=== PATIENT | female | born 1930 | race Caucasian/White ===

== ENCOUNTER → 2016-04-30 | Outpatient (CLI) | payer OTHER ==
[~2016-04-30] MED LIST: ALLEGRA PO; ASPIRIN PO; ATENOLOL PO; CALTRATE PLUS T1 TAB PO; CRESTOR PO; FISH OIL 1,0001 CAP PO; GARLIC; IMODIUM2 MG PO; MUCINEX DM1 TAB.SR . PO; SULAR PO; TRICOR PO; VIT E PO
--- NOTE | ~2016-04-30 | CR151 ---
[facility] A Service of [facility] RADIOLOGY TEXT RESULTS PATIENT: ARIELLE BEST LOCATION: [facility] : 28 UNIT #: [id number] AGE: [address]: JUDAH MELTON APRN SEX: F ORDER DR: [id number] [facility] [address] [place], [place] [address] [id number] O MR#: [id number] Acc #: [id number] NAME: ARIELLE BEST. : 1930 SEX: F STUDY DATE/TIME: 04/30/2016 18:02 UNIT: [facility] ROOM: STUDY DESCRIPTION: CR Hip Min 2 Views Rt Attending Physician: Judah Melton A.P.R.N. Referring Physician: Judah Melton A.P.R.N. Ordering Physician: Judah Melton A.P.R.N. Primary Care Physician: Monroe Talavera M.D. MEDICAL IMAGING REPORT This report is preliminary unless electronic signature is present EXAM Right hip 2 views 04/30/2016 HISTORY Right hip pain for 1 year and history of fall 4.5 month ago. FINDINGS 2 views of the right hip demonstrate no fracture. There is degenerative change with marked axial narrowing of the hip joints bilaterally with osteophytic spurring about each femoral head and acetabulum as well as subchondral cyst formation and sclerosis, right greater than left. There is no soft tissue abnormality. 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 No acute abnormality Dictated by... Aaron Dumont M.D. THIS IS AN ELECTRONICALLY VERIFIED REPORT Aaron Dumont M.D. at 05/02/2016 7:54 AM KRT/to TD: 05/01/2016 13:35 JOB #: [id number] MEDICAL IMAGING REPORT COPY
== END | disposition home or self-care (01) ==
LOC: CRAD 17:41
DX: M25.551 Pain in right hip (principal); M16.0 Bilateral primary osteoarthritis of hip
CPT/HCPCS: 73502

== ENCOUNTER → 2016-09-21 | Outpatient (CLI) | payer OTHER ==
--- NOTE | ~2016-09-21 | MY29 ---
[facility] A Service [facility] RADIOLOGY TEXT RESULTS PATIENT: ARIELLE BEST LOCATION: [facility] : 28 UNIT #: [id number] AGE: [address]: Monroe Talavera MD SEX: F ORDER DR: [id number] [facility] [address] [place], [place] [address] [id number] O MR#: [id number] Acc #: [id number] NAME: ARIELLE BEST : 1930 SEX: F STUDY DATE/TIME: 09/21/2016 8:46 UNIT: [facility] ROOM: STUDY DESCRIPTION: MY SHAUN SCREENING W/ CAD BILAT Attending Physician: Monroe Talavera M.D. Referring Physician: Monroe Talavera M.D. Ordering Physician: Monroe Talavera M.D. Primary Care Physician: Monroe Talavera M.D. MEDICAL IMAGING REPORT This report is preliminary unless electronic signature is present EXAM Digital screening mammogram 09/21/2016 HISTORY 86-year-old woman. No risk elevation. Annual screen. COMPARISON Mammograms date to 06/12/2006 with most recent 09/20/2015. FINDINGS Digital imaging of each breast was completed utilizing screening protocol. Review includes FDA-approved CAD device. Breast parenchyma is partially fatty replaced and mildly heterogeneous. Residual parenchymal opacities in each breast, slightly dominant inferior left breast, are stable. I see no interval occurring mass. There are no suspicious microcalcifications and no architectural deformity. IMPRESSION Stable benign mammogram. Annual screening recommended. Patient's over the age of 40 are entered into a reminder system with target due date for the next mammogram. BIRADS: 2 Benign findings Dictated by... Quinton Salvador M.D. THIS IS AN ELECTRONICALLY VERIFIED REPORT Quinton Salvador M.D. at 09/21/2016 1:56 PM RICKEY/calos [facility] A Service [facility] RADIOLOGY TEXT RESULTS PATIENT: ARIELLE BEST LOCATION: [facility] : 29 UNIT #: [id number] AGE: [address]: Monroe Talavera MD SEX: F ORDER DR: TD: 09/21/2016 11:32 JOB #: [id number] MEDICAL IMAGING REPORT Page 1 of 1 COPY
== END | disposition home or self-care (01) ==
LOC: CWCC 08:22
DX: Z12.31 Encounter for screening mammogram for malignant neoplasm of breast (principal)
CPT/HCPCS: G0202